=== PATIENT | female | born 1975 | race Caucasian/White ===

== ENCOUNTER 2018-07-01 14:53 | Emergency (ER) | payer BC, OTHER ==
[~2018-07-01] VITALS: Ht 165.1 cm; Wt 104.3 kg
[~2018-07-01 14:53] MED LIST: HUMALOG100 UNIT/1 SUBQ; KEFLEX500 M1 PO; LANTUS100 UNIT/M SUBQ; NORCO 5-325 TA1 EACH PO; TRAMADOL 50 MG50 MG PO
[2018-07-01] MEDS ORDERED: HYDROCODONE-AP1 EAC6 PO (17:41)
[2018-07-01] MEDS ORDERED: KEFLEX500 M1 PO (17:41)
[2018-07-01 17:49] VITALS: BP 125/69
== END 2018-07-01 17:50 | disposition home or self-care (01) ==
LOC: ER 14:53
DX: S60.454A Superficial foreign body of right ring finger, initial encounter (principal); X58.XXXA Exposure to other specified factors, initial encounter; Y93.89 Activity, other specified; Y92.89 Other specified places as the place of occurrence of the external cause; Y99.8 Other external cause status